=== PATIENT | female | born 1990 | race Caucasian/White ===

== ENCOUNTER 2023-12-17 16:42 | Outpatient (CLI) | payer BC, OTHER ==
[2023-12-17 17:23] LABS: Basophils % (A) 0 %; Eosinophils % (A) 0 %; HCT 39.4 % (34.0-46.0); HGB 12.9 gm/dL (11.4-16.0); Lymphocytes # (A) 1.9 k/uL (1.0-4.8); Lymphocytes % (A) 16 %; MCH 29.5 pg (25.0-35.0); MCHC 32.7 g/dL (31.0-37.0); MCV 90.3 fL (80.0-100.0); Mean Platelet Volume 10.1; Monocytes # (A) 0.9 k/uL (0-1.0); Monocytes % (A) 7 %; Neutrophils # (A) 8.7 k/uL (1.3-7.7); Neutrophils % (A) 73 %; Platelet Count 318 k/uL (150-450); RBC 4.36 m/uL (3.80-5.40); RDW 13.5 % (11.5-15.5); WBC 11.9 k/uL (3.8-10.6)
[2023-12-17 17:29] LABS: Appearance,Urine Cloudy (Clear); Bacteria,Urine Rare /hpf; Bilirubin,Urine Negative (Negative); Blood,Urine Negative (Negative); Color,Urine Colorless; Glucose,Urine (UA) Negative (Negative); Ketones,Urine Negative (Negative); Leukocyte Esterase,Urine Negative (Negative); Nitrite,Urine Negative (Negative); Protein,Urine Negative (Negative); Specific Gravity,Urine 1.007 (1.001-1.035); Squamous Epithelial Cell,Urine 10 /hpf (0-4); Urobilinogen,Urine <2.0 mg/dL (<2.0); WBC,Urine 1 /hpf (0-5)
[2023-12-17 18:06] VITALS: BP 143/94; PULSE 82; RESP 18; TEMP 98.6
== END 2023-12-17 18:04 | disposition home or self-care (01) ==
LOC: FBPOP 16:42
PROVIDERS: ATTEND Obstetrics & Gynecology
DX: O13.3 Gestational [pregnancy-induced] hypertension without significant proteinuria, third trimester (principal); Z3A.34 34 weeks gestation of pregnancy
CPT/HCPCS: 59025; 81001; 83615; 84450; 84460; 84550; 85025

== ENCOUNTER 2024-01-06 06:00 | Inpatient (IN) | payer BC ==
[2024-01-06] MEDS ORDERED: CARBOPROST TROMETHAMINE 250 MCG/ML 1 ML AMP IM PRN (07:08)
[2024-01-06] MEDS ORDERED: LIDOCAINE 0.5% (PF) 5 MG/ML (50 ML SDV) SQ PRN (07:08)
[2024-01-06] MEDS ORDERED: TRANEXAMIC 1,000 MG/100ML-NACL 1,000 MG in EMPTY BAG 1 BAG IV PRN (07:08)
[2024-01-06] MEDS ORDERED: TERBUTALINE 1 MG/ML VIAL SQ PRN (07:08)
[2024-01-06] MEDS ORDERED: METHYLERGONOVINE 0.2 MG/ML 1 ML AMP IM PRN (07:08)
[2024-01-06] MEDS ORDERED: OXYTOCIN 10 UNIT/ML 1 ML VIAL IM PRN (07:08)
[2024-01-06] MEDS ORDERED: miSOPROStoL 200 MCG TAB PO PRN (07:08)
[2024-01-06] MEDS: LACTATED RINGERS 1,000 ML IV SCH (07:15)
[2024-01-06] MEDS ORDERED: OXYTOCIN 30 UNITS/500 ML NS 30 UNIT in SALINE 1 500ML.BAG IV SCH (07:15)
[2024-01-06 07:23] LABS: Basophils % (A) 0 %; Eosinophils # (A) 0.1 k/uL (0-0.7); Eosinophils % (A) 1 %; HCT 36.8 % (34.0-46.0); HGB 12.4 gm/dL (11.4-16.0); Lymphocytes # (A) 2.5 k/uL (1.0-4.8); Lymphocytes % (A) 22 %; MCH 30.1 pg (25.0-35.0); MCHC 33.8 g/dL (31.0-37.0); Mean Platelet Volume 10.3; Monocytes # (A) 0.6 k/uL (0-1.0); Monocytes % (A) 6 %; Neutrophils # (A) 7.8 k/uL (1.3-7.7); Neutrophils % (A) 69 %; Platelet Count 279 k/uL (150-450); RBC 4.13 m/uL (3.80-5.40); RDW 13.7 % (11.5-15.5); WBC 11.4 k/uL (3.8-10.6)
[2024-01-06] MEDS: PENICILLIN G POTASSIUM 5,000,000 UNIT in DEXTROSE 5% IN WATER 100 ML IVPB STA (07:31)
[2024-01-06] MEDS: OXYTOCIN 30 UNITS/500 ML NS 30 UNIT in SALINE 1 500ML.BAG IV SCH (07:46)
[2024-01-06 08:29] LABS: ALT 17 U/L (4-34); AST 24 U/L (14-36); African American GFR (CKD) >90 (>60 ml/min/1.73 sqM); Blood Urea Nitrogen 10 mg/dL (7-17); LDH 175 U/L (120-246); Non-African American GFR(CKD) >90 (>60 ml/min/1.73 sqM)
--- NOTE | 2024-01-06 08:48 | P.HPOB ---
History of Present Illness H&P Date: 01/06/24 Chief Complaint: 37+ weeks, gestational hypertension The patient is a 33-year-old 1 para 0 admitted at 37+ weeks as established by last menstrual period and confirmed by 11-week ultrasound. She is admitted for induction of labor secondary to increasingly labile blood pressures with no evidence of laboratory abnormalities to indicate preeclampsia with severe features. She denies any secondary symptoms to include headache, scotomata, or significantly increasing edema and has had no protein in her urine. On labor delivery, all signs are reassuring with a category 1 heart rate tracing. She does fall into the category of advanced maternal age and underwent maternal trisomy screening which was negative. She was started on labetalol in the middle portion of the third trimester and over the last 2 weeks has had increasingly labile and higher blood pressures requiring increasing doses of labetalol. She is currently on 200 mg twice daily with continued labile blood pressures. Group B strep status is positive. Obstetrical history: 1 para 0 with current statistics listed in history of present illness. EDC of 01/25/2024 was established by last menstrual period confirmed by 11-week ultrasound. Laboratory workup demonstrates a blood type of A+ with a negative antibody screen. Rubella status is immune. The remainder of the laboratory workup was within normal limits. Early Glucola was elevated but followed by a normal 3-hour glucose tolerance test. Second trimester Glucola was normal. Group B strep status is positive. Gynecologic history: Unremarkable with no history of any infections to include STDs. Review of Systems Systems is confined to history of present illness. Past Medical History Past Medical History: No Reported History History of Any Multi-Drug Resistant Organisms: None Reported Additional Past Surgical History / Comment(s): ACL repair. Past Anesthesia/Blood Transfusion Reactions: No Reported Reaction Past Psychological History: No Psychological Hx Reported Smoking Status: Never smoker Past Alcohol Use History: None Reported Past Drug Use History: None Reported - Past Family History Mother Family Medical History: No Reported History Medications and Allergies Home Medications Medication Instructions Recorded Confirmed Type Labetalol [Trandate] 100 mg PO BID 01/06/24 01/06/24 History Vit No.179/Iron/Folic 1 each PO 01/06/24 History [ Tablet] Allergies Allergy/AdvReac Type Severity Reaction Status Date / Time No Known Allergies Allergy Verified 01/06/24 07:05 Exam Vital Signs Temp Pulse Resp BP Pulse Ox 01/06/24 06:50 99.3 F 75 16 147/91 97 Intake and Output 01/05/24 01/06/24 01/06/24 22:59 06:59 14:59 Other: Weight 119.748 kg 119.748 kg In general, this is a well-developed, mild to moderately obese white female in no acute distress. Her heart has a regular rhythm and rate without murmur. Her lungs are clear to auscultation bilaterally in all agy. Her abdomen is gravid, nondistended, has normal active bowel sounds, soft, nontender, and without any palpable masses aside from the uterine fundus. Her extremities are without any cyanosis, clubbing, or significant edema and are nontender to palpation bilaterally. Digital cervical examination demonstrates her cervix be 2 cm dilated, 50% effaced, with a vertex and presentation at -2 station. Artificial rupture of membranes is carried out demonstrating clear fluid though there may be a light meconium staining. Results Result Diagrams: 01/06/24 07:03 Abnormal Lab Results - Last 24 Hours (Table) 01/06/24 Range/Units 07:03 WBC 11.4 H (3.8-10.6) k/uL Neutrophils # 7.8 H (1.3-7.7) k/uL Assessment and Plan (1) Term Current Visit: Yes Status: Acute Code(s): Z34.90 - ENCNTR FOR SUPRVSN OF NORMAL , UNSP, UNSP TRIMESTER SNOMED Code(s): 01275195 (2) Group B streptococcal infection in Current Visit: Yes Status: Acute Code(s): O98.819 - OTH MATERNAL INFEC/NORTH TC DISEASES COMP PREG, UNSP TRI; B95.1 - STREPTOCOCCUS, GROUP B, CAUSING DISEASES CLASSD ELSWHR SNOMED Code(s): 867685782 (3) Gestational hypertension Current Visit: Yes Status: Acute Code(s): O13.9 - GESTATIONAL HTN W/O SIGNIFICANT PROTEINURIA, UNSP TRIMESTER SNOMED Code(s): 23274666 Plan: Patient is admitted for induction of labor. Pitocin augmentation has been started and she has undergone artificial rupture of membranes. She will have close maternal and surveillance and expectant management will be pr acticed. Blood pressures thus far have been slightly elevated but have not required intervention. Patient is a good candidate for either IV, epidural, or nitrous analgesia, whichever she may choose.
[2024-01-06 08:51] LABS: Uric Acid 5.3 mg/dL (3.7-7.4)
[2024-01-06] MEDS: LABETALOL 200 MG TAB PO SCH (09:15)
[2024-01-06] MEDS: PENICILLIN G POTASSIUM 2,500,000 UNIT in DEXTROSE 5% IN WATER 100 ML IVPB SCH (11:04)
[2024-01-06] MEDS: NALBUPHINE 10 MG/ML (10 ML MDV) IV PRN (15:42)
[2024-01-06] MEDS ORDERED: SODIUM CHLORIDE 0.9% 250 ML BAG ONE (18:01)
[2024-01-06] MEDS ORDERED: fentaNYL (PF) 50 MCG/ML 5 ML AMP ONE (18:01)
[2024-01-06] MEDS ORDERED: ROPIVACAINE 5 MG/ML 30 ML VIAL ONE (18:01)
[2024-01-06] MEDS ORDERED: hydrALAZINE HCL 20 MG/ML 1 ML VIAL IVP PRN ×3 (19:00)
[2024-01-06] MEDS ORDERED: LABETALOL 5 MG/ML VIAL MDV IVP PRN ×4 (19:00)
[2024-01-06] MEDS: LABETALOL 5 MG/ML VIAL MDV IVP PRN (19:08)
[2024-01-07] MEDS: CITRIC ACID-SODIUM CITRATE 15 ML CUP PO ONE (05:31)
[2024-01-07] MEDS ORDERED: PHENYLEPHRINE-0.9% NACL SYG 1,000 MCG/10 ML SYRINGE ONE (06:04)
[2024-01-07] MEDS ORDERED: OXYTOCIN 30 UNITS/500 ML NS BAG IV ONE (06:04)
[2024-01-07] MEDS ORDERED: KETOROLAC 15 MG/ML 1 ML VIAL ONE (06:04)
[2024-01-07] MEDS ORDERED: diphenhydrAMINE 25 MG CAP PO PRN (06:58)
[2024-01-07] MEDS ORDERED: NALOXONE 0.4 MG/ML 1 ML VIAL IV PRN (06:58)
[2024-01-07] MEDS ORDERED: ONDANSETRON 4 MG/2 ML VIAL IVP PRN (06:58)
[2024-01-07] MEDS ORDERED: ZOLPIDEM 5 MG TAB PO PRN (06:58)
[2024-01-07] MEDS ORDERED: diphenhydrAMINE 50 MG/ML 1 ML VIAL IVP PRN ×2 (06:58)
[2024-01-07] MEDS ORDERED: SIMETHICONE 80 MG CHEWABLE PO PRN (06:58)
[2024-01-07] MEDS ORDERED: METOCLOPRAMIDE 5 MG/ML 2 ML VIAL IVP PRN (06:58)
[2024-01-07] MEDS ORDERED: KETOROLAC 15 MG/ML 1 ML VIAL IVP PRN (06:58)
[2024-01-07] MEDS ORDERED: LANOLIN CREAM 1 GM TUBE TOPICAL PRN (06:58)
[2024-01-07] MEDS ORDERED: diphenhydrAMINE 50 MG CAP PO PRN (06:58)
[2024-01-07] MEDS ORDERED: OXYTOCIN 30 UNITS/500 ML NS 30 UNIT in SALINE 1 500ML.BAG IV SCH (07:00)
--- NOTE | 2024-01-07 07:06 | P.OP ---
Date of Procedure: 01/07/24 Preoperative Diagnosis: #1. 39+ weeks, induction #2. Gestational hypertension without evidence of preeclampsia #3. Arrest of dilation and descent Postoperative Diagnosis: Same plus #4. occiput posterior position Procedure(s) Performed: #1. Primary low-transverse section Anesthesia: epidural Surgeon: Anand Neil Asphalt Coater #1: Suzie Escobar Estimated Blood Loss (ml): 710 IV fluids (ml): 500 Urine output (ml): 50 Pathology: other (Placenta) Condition: stable Disposition: floor Operative Findings: Preoperatively, the patient had been undergoing induction of labor for just under 24 hours. She made progress into the active phase of labor to approximately 5 cm, 90% effacement, with a vertex and presentation at -2-3 station. She continued to have a more than adequate contraction pattern with Pitocin augmentation for approximately 7 to 8 hours with no further dilation or effacement or descent of the head. A discussion was undertaken with the patient regarding the findings and the lack of change despite adequate contractions and she not only consented but requested to proceed to primary low- transverse section. She was taken to the operating room where she was delivered of a viable 6 pound 7 ounce baby girl with Apgars of 9 at 1 minute and 9 at 5 minutes delivered in the left occiput posterior position. The placenta was delivered manually, intact, and grossly normal with a grossly normal three- vessel cord. The uterus, tubes, and ovaries were entirely normal to inspection. Description of Procedure: The patient was prepped and draped in usual fashion after epidural anesthesia was bolused by the anesthesiologist. A Pfannenstiel incision was made and extended into the abdominal cavity without difficulty. The bladder peritoneum was deemed significantly distal to the intended site of incision and was left intact. A 2 cm incision was made in the transverse plane of the lower uterine segment after the uterus at which time clear fluid was again encountered. The incision was extended in both directions using the bandage scissors. The head was delivered up and through the incision and found to be in the left occiput posterior position. The nose and mouth were thoroughly suctioned and the remainder of the infant delivered onto the field where the cord was doubly clamped, cut, and the passed for resuscitative measures with weight and Apgars as noted above. The placenta was delivered manually and intact as noted above. The uterus was exteriorized and the anterior cavity uterus swept of any remaining placental or membranous fragments. The margins of the uterine incision were grasped with Bell clamps and the incision closed in 2 layers. The first layer was a running locking stitch of 0 chromic catgut followed by a running imbricating stitch of 0 chromic catgut, each from margin to margin. The posterior cul-de-sac was suctioned with a guard and the uterine and ovarian findings were entirely normal. The uterus was replaced within the abdominal cavity and the gutters swept of any remaining blood, fluid, or clot. Reexamination of the uterine incision demonstrated some bleeding in the central portion which was made hemostatic with a single pgniaf-nf-asnwn stitch of 0 chromic catgut. Cautery was used to make hemostatic any other small points of bleeding. Once hemostasis was achieved, the parietal peritoneum was loosely reapproximated and the layer of muscles examined and found to be hemostatic. The fascia was closed with a single running stitch of 0 Vicryl proceeding from margin to margin. The subcutaneous tissues were irrigated, made hemostatic with the Bovie, and reapproximated with a running stitch of 3-0 plain catgut. The skin was reapproximated with a running subcuticular stitch of 4-0 Vicryl followed by half-inch Steri-Strips placed with Mastisol. Quantitative blood loss for the case was 710 mL. There were no complications. All sponge, instrument, and needle counts were correct. The patient tolerated the procedure well and proceeded to the recovery room in stable condition. Both mother and are resting comfortably in recovery.
[2024-01-07] MEDS: SENNOSIDES-DOCUSATE SODIUM 1 EACH TAB PO SCH (08:49)
[2024-01-07] MEDS: ACETAMINOPHEN TAB 500 MG TAB PO SCH (10:43)
[2024-01-07] MEDS: IBUPROFEN 600 MG TAB PO SCH (13:04)
[2024-01-07] MEDS: LACTATED RINGERS 1,000 ML IV SCH (18:06)
--- NOTE | 2024-01-08 06:13 | P.PN ---
Progress Note - Text Progress Note Date: 01/08/24 Postoperative day 1 status post section under spinal anesthesia and in trathecal Duramorph for postoperative analgesia.The patient is doing well, there is mild generalized skin itching. There are no other anesthesia related complications. The patient denies any paresthesia or weakness in the lower extremities. Patient denies any headache. Further management as per the patient primary team.
[2024-01-08 08:23] LABS: Basophils % (A) 0 %; Eosinophils # (A) 0.1 k/uL (0-0.7); Eosinophils % (A) 1 %; HCT 29.4 % (34.0-46.0); Lymphocytes # (A) 2.1 k/uL (1.0-4.8); Lymphocytes % (A) 19 %; MCH 29.5 pg (25.0-35.0); MCHC 32.2 g/dL (31.0-37.0); MCV 91.4 fL (80.0-100.0); Mean Platelet Volume 10.6; Monocytes # (A) 0.8 k/uL (0-1.0); Monocytes % (A) 7 %; Neutrophils # (A) 7.7 k/uL (1.3-7.7); Neutrophils % (A) 71 %; Platelet Count 221 k/uL (150-450); RBC 3.21 m/uL (3.80-5.40); RDW 13.7 % (11.5-15.5); WBC 10.9 k/uL (3.8-10.6)
[2024-01-08 08:24] LABS: HGB 9.5 gm/dL (11.4-16.0)
--- NOTE | 2024-01-08 09:12 | P.PNOBGPC ---
Subjective - Subjective Patient reports: Reports appetite normal, Reports voiding normally, Reports pain well controlled, Reports ambulating normally : doing well, nursing well Objective - Vital Signs Latest vital signs: Vital Signs Temp Pulse Resp BP Pulse Ox 01/08/24 08:00 97.9 F 74 18 135/87 99 01/08/24 00:00 97.9 F 88 17 130/70 97 01/07/24 21:50 140/81 01/07/24 20:00 97.6 F 75 17 144/89 98 01/07/24 16:00 98.1 F 89 18 140/92 98 01/07/24 12:00 98.2 F 90 18 162/94 Intake and Output 01/07/24 01/08/24 01/08/24 22:59 06:59 14:59 Output Total 800 500 Balance -800 -500 Output: Urine 800 500 Uretheral ([place]) 400 Other: Voiding Method Toilet Indwelling Catheter # Voids 1 2 - Exam Extremities: Present: normal Abdomen: Present: normal appearance, soft. Absent: distention, tenderness Incision: Present: normal, dry, intact Uterus: Present: normal, firm (The uterine fundus is tonic and appropriately tender below the umbilicus.) - Labs Labs: Abnormal Lab Results - Last 24 Hours (Table) 01/08/24 Range/Units 07:09 WBC 10.9 H (3.8-10.6) k/uL RBC 3.21 L (3.80-5.40) m/uL Hgb 9.5 L D (11.4-16.0) gm/dL Hct 29.4 L (34.0-46.0) % Assessment and Plan (1) Term Current Visit: Yes Status: Acute Code(s): Z34.90 - ENCNTR FOR SUPRVSN OF NORMAL , UNSP, UNSP TRIMESTER SNOMED Code(s): 67157736 (2) Group B streptococcal infection in Current Visit: Yes Status: Acute Code(s): O98.819 - OTH MATERNAL INFEC/PARASTC DISEASES COMP PREG, UNSP TRI; B95.1 - STREPTOCOCCUS, GROUP B, CAUSING DISEASES CLASSD ELSWHR SNOMED Code(s): 706277557 (3) Gestational hypertension Current Visit: Yes Status: Acute Code(s): O13.9 - GESTATIONAL HTN W/O SIGNIFICANT PROTEINURIA, UNSP TRIMESTER SNOMED Code(s): 35965556 (4) S/P section Current Visit: Yes Status: Acute Code(s): Z98.891 - HISTORY OF UTERINE SCAR FROM PREVIOUS SURGERY SNOMED Code(s): 624716205 Plan: Blood pressure appears to be stable on labetalol 200 mg twice daily. Continue routine and postoperative care. I would anticipate discharge home tomorrow pending no complications. I have encouraged the patient ambulate in the hallways routinely.
--- NOTE | 2024-01-09 08:48 | P.DS ---
Providers Date of admission: 01/06/24 06:45 Expected date of discharge: 01/09/24 Attending physician: Anand Neil Primary care physician: Stated None Hospital Course: Ms. Mary is a 33 year old now POD#2 s/p primary section for maternal request during medical induction of labor for gestational hypertension. Her postoperative course has been essentially uncomplicated. Blood pressures have been moderately well controlled with Labetalol 200 BID. She did have one severe range blood pressure this morning just before her medication was due. Will continue to monitor blood pressures this morning and titrate medication as needed. The patient is doing well this morning and had no acute events overnight. She has no complaints this morning. She reports minimal lochia, passing flatus, voiding without difficulty, ambulating, and eating/drinking without nausea or vomiting. She denies headache, visual disturbances, and RUQ pain. doing well at bedside. She denies chest pain, shortness of breathing, fevers, or chills overnight. She denies pain or swelling in the legs. Postoperative restrictions are reviewed with the patient including pelvic rest for 6 weeks, no lifting heavier than 15 pounds for 6 weeks. The patient is encouraged to call the office if she experiences any heavy bleeding, foul- smelling discharge, breast complaints, or any if she has any other concerns. She will follow up in the office with Dr. Neil in 1 week for blood pressure check. She will go home with Motrin, Tylenol, and a 3-day supply of oxycodone for breakthrough pain. She will also go home with Labetalol 200mg BID. All questions are answered. Assessment: 33 year old now POD#2 s/p primary Patient Condition at Discharge: Good Plan - Discharge Summary New Discharge Prescriptions: New Ibuprofen [Motrin] 600 mg PO Q6HR PRN #30 tab PRN Reason: Mild Pain (Scale 1 To 3) oxyCODONE HCL [Roxicodone] 5 mg PO Q6HR PRN 3 Days #12 tab PRN Reason: Breakthrough Pain Acetaminophen Tab [Tylenol] 650 mg PO Q6H PRN #30 tab PRN Reason: Mild Pain (Scale 1 To 3) Labetalol HCl 200 mg PO BID #60 tab No Action Labetalol [Trandate] 100 mg PO BID Vit No.179/Iron/Folic [ Tablet] 1 each PO Discharge Medication List Labetalol [Trandate] 100 mg PO BID 01/06/24 [History] Vit No.179/Iron/Folic [ Tablet] 1 each PO 01/06/24 [History] Acetaminophen Tab [Tylenol] 650 mg PO Q6H PRN #30 tab 01/09/24 [Rx] Ibuprofen [Motrin] 600 mg PO Q6HR PRN #30 tab 01/09/24 [Rx] Labetalol HCl 200 mg PO BID #60 tab 01/09/24 [Rx] oxyCODONE HCL [Roxicodone] 5 mg PO Q6HR PRN 3 Days #12 tab 01/09/24 [Rx] Follow up Appointment(s)/Referral(s): Anand Neil MD [STAFF PHYSICIAN] - 02/16/24 1:15 pm (Post C/S Appointment 01-20-2024 at 2:00pm, also needs 1 week BP check) Activity/Diet/Wound Care/Special Instructions: Instructions 1. Do not begin any exercise program for 3 weeks. 2. Do not resume sexual relations for 6 weeks or longer if uncomfortable. 3. You may take tub baths or showers at any time. 4. You may use tampons if desired after 6 weeks. 5. Keep any areas repaired with stitches clean and dry. 6. If you are not nursing, wear a good fitting, supportive bra during the day and limit fluid intake for at least 1 week to prevent breast engorgement. 7. Call the office, , within the next week to make appointment for your 6 week checkup if it has not already been made. 8. Report any of the following occurrences to the doctor promptly: a. Heavy, excessive bleeding b. Chills, fever c. Burning or frequency of urination d. Pain or redness and breasts if nursing e. Increasing pain or swelling of vulva (stitches). In addition to the above instructions, the following additional should be followed: 1. No heavy lifting or straining (exercising) until after 6 week checkup. 2. Keep abdominal incision clean and dry: You may wear a dressing if more comfortable. 3. Make office appointment for 2 weeks after delivery date. Discharge Disposition: HOME SELF-CARE
[2024-01-09 09:11] VITALS: TEMP 97.5
[2024-01-09 11:29] VITALS: RESP 14
[2024-01-09] MEDS: LABETALOL 100 MG TAB PO ONE (11:53)
[2024-01-09 13:41] VITALS: BP 159/96; PULSE 73
== END 2024-01-09 12:50 | disposition home or self-care (01) | DRG 787 ==
LOC: 4FBP 06:45
PROVIDERS: ADMIT Obstetrics & Gynecology; ATTEND Obstetrics & Gynecology
PROC: 10D00Z1 Extraction of Products of Conception, Low, Open Approach (ICD-10-PCS; principal; 2024-01-07 06:20)
DX: O13.4 Gestational [pregnancy-induced] hypertension without significant proteinuria, complicating childbirth (principal); O98.82 Other maternal infectious and parasitic diseases complicating childbirth; B95.1 Streptococcus, group B, as the cause of diseases classified elsewhere; O12.14 Gestational proteinuria, complicating childbirth; O62.1 Secondary uterine inertia; O99.824 Streptococcus B carrier state complicating childbirth; Z37.0 Single live birth
CPT/HCPCS: 82565; 83615; 84450; 84460; 84520; 84550; 85025; 86850; 86900; 86901; 88307

== ENCOUNTER 2024-01-13 00:01 | Inpatient (IN) | payer BC ==
--- NOTE | 2024-01-13 00:38 | ED ---
Chest Pain HPI - General Chief Complaint: Chest Pain Stated Complaint: chest pain high BP had a c section on friday Time Seen by Provider: 01/13/24 00:36 Source: patient Mode of arrival: wheelchair Limitations: no limitations - History of Present Illness Initial Comments: This patient is a 33-year-old woman who presents to evaluation of chest tightne ss and hypertension. The patient had on January [address] Juan Aguayo she had been admitted in the hospital for induction. Related to gestational hypertension without evidence of preeclampsia. The patient then reportedly having failure to have further dilation had . The patient did go home with labetalol 400 mg/day. Today she noticed that she was having little bit of chest tightness and some mild headache and checked her blood pressure. Blood pressure at home was found to be in the 150s. She had prior to this been running in the 140s over 90s. Her blood pressure medication was increased to labetalol 600 mg/day. When the symptoms did not resolve she checked her blood pressure again and it had increased to a systolic reading in the 170s and she was recommended to come to emergency department. Patient denies any right upper quadrant or any abdominal pain. In relation to her section she states that there is just a minimal amount of lower abdominal tenderness and that the incision is clean and dry. Not having fever or chills. No change in urination or bowel movements. MD Complaint: chest pain -: hour(s) Onset: during rest Pain Location: substernal Pain Radiation: none Severity: mild Quality: tightness Consistency: constant Improves With: nothing Worsens With: nothing Anginal Symptoms: nausea Treatments Prior to Arrival: other (Labetalol) - Related Data Home Medications Medication Instructions Recorded Confirmed Labetalol [Trandate] 100 mg PO BID 01/06/24 01/06/24 Vit No.179/Iron/Folic 1 each PO 01/06/24 [ Tablet] Previous Rx's Medication Instructions Recorded Acetaminophen Tab [Tylenol] 650 mg PO Q6H PRN #30 tab 01/09/24 Ibuprofen [Motrin] 600 mg PO Q6HR PRN #30 tab 01/09/24 Labetalol HCl 200 mg PO BID #60 tab 01/09/24 oxyCODONE HCL [Roxicodone] 5 mg PO Q6HR PRN 3 Days #12 tab 01/09/24 Labetalol HCl 300 mg PO BID #60 tab 01/14/24 NIFEdipine XL [Procardia Xl] 30 mg PO DAILY #30 tab 01/14/24 Allergies Allergy/AdvReac Type Severity Reaction Status Date / Time No Known Allergies Allergy Verified 01/06/24 07:05 Review of Systems ROS Statement: Those systems with pertinent positive or pertinent negative responses have been documented in the HPI. ROS Other: All systems not noted in ROS Statement are negative. Constitutional: Denies: fever, chills, weakness Eyes: Denies: eye pain, vision change Respiratory: Denies: cough, dyspnea, wheezes Cardiovascular: Reports: as per HPI, chest pain. Denies: palpitations, dyspnea on exertion, orthopnea, edema, syncope Gastrointestinal: Denies: abdominal pain, nausea, vomiting, diarrhea Genitourinary: Denies: dysuria, hematuria Musculoskeletal: Denies: back pain Skin: Denies: rash Neurological: Reports: headache. Denies: weakness, numbness, paresthesias Psychiatric: Reports: anxiety EKG Findings - EKG Results: EKG: interpreted by SHAMEKA STACK, sinus rhythm (Rate 70 bpm), normal axis, normal QRS, normal ST/T, no acute changes Past Medical History Past Medical History: No Reported History History of Any Multi-Drug Resistant Organisms: None Reported Additional Past Surgical History / Comment(s): ACL repair. Past Anesthesia/Blood Transfusion Reactions: No Reported Reaction Past Psychological History: No Psychological Hx Reported Smoking Status: Never smoker Past Alcohol Use History: None Reported Past Drug Use History: None Reported - Past Family History Mother Family Medical History: No Reported History General Exam Limitations: no limitations General appearance: alert, in no apparent distress Head exam: Present: atraumatic, normocephalic Eye exam: Present: normal appearance. Absent: scleral icterus, conjunctival injection ENT exam: Present: normal oropharynx Neck exam: Present: normal inspection Respiratory exam: Present: normal lung sounds bilaterally. Absent: respiratory distress, wheezes, rales, rhonchi, stridor, accessory muscle use Cardiovascular Exam: Present: regular rate, normal rhythm, normal heart sounds. Absent: systolic murmur, diastolic murmur, rubs, gallop GI/Abdominal exam: Present: soft. Absent: distended, tenderness, guarding, rebound, rigid, mass Extremities exam: Present: normal inspection, normal capillary refill. Absent: pedal edema, calf tenderness Back exam: Present: normal inspection. Absent: CVA tenderness (R), CVA tenderness (L) Neurological exam: Present: alert Skin exam: Present: warm, dry, intact, normal color. Absent: rash Course Vital Signs 01/13/24 01/13/24 01/13/24 00:13 00:50 01:10 Temperature 98 F Pulse Rate 87 69 71 Respiratory 20 12 24 Rate Blood Pressure 196/125 182/108 155/103 O2 Sat by Pulse 97 97 97 Oximetry 01/13/24 01/13/24 01:40 02:10 Temperature Pulse Rate 78 73 Respiratory 23 24 Rate Blood Pressure 153/84 156/93 O2 Sat by Pulse 95 95 Oximetry Chest Pain MDM - MDM Patient's blood pressure elevated at 196/125. She is given dose of labetalol 20 mg IV and started on magnesium IV, she had 1 g IV piggyback and I went and reevaluated. The patient's blood pressure has started to improve with treatment. Blood pressure on the monitor currently reading 152/84 she states all of her symptoms have resolved now. Case discussed with Dr. Alvarado who will admit patient to mother-baby unit to receive rest of magnesium and further monitoring evaluation. The patient had chest x-ray which I interpreted as negative for acute infiltrate, pneumothorax, congestive heart failure Was pt. sent in by a medical professional or institution (RAMON Dobbs, BRIDGE MAINTAINER, urgent care, hospital, or detention...) When possible be specific @ -[No] Did you speak to anyone other than the patient for history (EMS, parent, family, police, friend...)? What history was obtained from this source @ -[No] Did you review nursing and triage notes (agree or disagree)? Why? @ -[I reviewed and agree with nursing and triage notes] Were old charts reviewed (outside hosp., previous admission, EMS record, old EKG, old radiological studies, urgent care reports/EKG's, detention records)? Report findings @ -[Yes, Old charts were reviewed] Differential Diagnosis (chest pain, altered mental status, abdominal pain women, abdominal pain men, vaginal bleeding, weakness, fever, dyspnea, syncope, headache, dizziness, GI bleed, back pain, seizure, CVA, palpatations, mental health, musculoskeletal)? @ -[Differential Chest Pain: Stable Angina, Unstable Angina, STEMI, NSTEMI Aortic Dissection, Pneumothorax, Musculoskeletal, Esophageal Spasm GERD, Cholecystitis, Pancreatitis, preeclampsia this is not meant to be an all-inclusive list. EKG interpreted by me (3pts min.). @ -[I interpreted as above] X-rays interpreted by me (1pt min.). @ -[I interpreted as above CT interpreted by me (1pt min.). @ -[None done] U/S interpreted by me (1pt. min.). @ -[None done] What testing was considered but not performed or refused? (CT, X-rays, U/S, labs)? Why? @ -[None] What meds were considered but not given or refused? Why? @ -[None] Did you discuss the management of the patient with other professionals (professionals i.e. , PA, BRIDGE MAINTAINER, lab, RT, psych nurse, social work professor, manager department, teacher, immigration officer, correctional counselor/case manager)? Give summary @ -[As above Case discussed with the miniature set designer. Was smoking cessation discussed for >3mins.? @ -[No] Was critical care preformed (if so, how long)? @ -[This, 30 minutes Were there social determinants of health that impacted care today? How? (Homelessness, low income, unemployed, alcoholism, drug addiction, transportation, low edu. Level, literacy, decrease access to med. care, senior living, rehab)? @ -[No] Was there de-escalation of care discussed even if they declined (Discuss DNR or withdrawal of care, Hospice)? DNR status @ -[No] What co-morbidities impacted this encounter? (DM, HTN, Smoking, COPD, CAD, Cancer, CVA, ARF, Chemo, Hep., AIDS, mental health diagnosis, sleep apnea, morbid obesity)? @ -[Hypertension. status. Was patient admitted / discharged? Hospital course, mention meds given and route, prescriptions, significant lab abnormalities, going to OR and other pertinent info. @ -[See the course above Undiagnosed new problem with uncertain prognosis? @ -[No] Drug Therapy requiring intensive monitoring for toxicity (Heparin, Nitro, In sulin, Cardizem)? @ -[IV magnesium Were any procedures done? @ -[No] Diagnosis/symptom? @ -[Acute hypertension preeclampsia Acute, or Chronic, or Acute on Chronic? @ -[Acute Uncomplicated (without systemic symptoms) or Complicated (systemic symptoms)? @ -[default] Side effects of treatment? @ -[No] Exacerbation, Progression, or Severe Exacerbation? @ -[No] Poses a threat to life or bodily function? How? (Chest pain, [place], [place], pneumonia, PE, COPD, DKA, ARF, appy, cholecystitis, CVA, Diverticulitis, Homicidal, Suicidal, threat to staff... and all critical care pts) @ -[Yes there is significant risk of morbidity and mortality associated with preeclampsia Disposition Clinical Impression: Gestational hypertension Narrative: preeclampsia versus gestational hypertension exacerbation Disposition: ADMITTED IP TO THIS [facility] Condition: Good Is patient prescribed a controlled substance at d/c from ED?: No
[2024-01-13] MEDS: LABETALOL 5 MG/ML VIAL MDV IVP STA (00:43)
[2024-01-13] MEDS: MAGNESIUM SULFATE-D5W PMX 1 GM in DEXTROSE/WATER 1 100ML.BAG IVPB SCH (00:47)
[2024-01-13 01:17] LABS: Basophils % (A) 0 %; Eosinophils # (A) 0.1 k/uL (0-0.7); Eosinophils % (A) 1 %; HCT 32.5 % (34.0-46.0); HGB 10.5 gm/dL (11.4-16.0); Lymphocytes # (A) 2.1 k/uL (1.0-4.8); Lymphocytes % (A) 19 %; MCH 29.4 pg (25.0-35.0); MCHC 32.3 g/dL (31.0-37.0); MCV 91.1 fL (80.0-100.0); Mean Platelet Volume 8.4; Monocytes # (A) 0.6 k/uL (0-1.0); Monocytes % (A) 6 %; Neutrophils # (A) 8.2 k/uL (1.3-7.7); Neutrophils % (A) 73 %; Platelet Count 438 k/uL (150-450); RBC 3.56 m/uL (3.80-5.40); RDW 13.6 % (11.5-15.5); WBC 11.2 k/uL (3.8-10.6)
[2024-01-13 01:30] LABS: ALT 59 U/L (4-34); AST 32 U/L (14-36); African American GFR (CKD) >90 (>60 ml/min/1.73 sqM); Albumin 3.1 g/dL (3.5-5.0); Alkaline Phosphatase 125 U/L (38-126); Anion Gap 6 mmol/L; Blood Urea Nitrogen 11 mg/dL (7-17); Calcium 8.7 mg/dL (8.4-10.2); Carbon Dioxide 22 mmol/L (22-30); Chloride 111 mmol/L (98-107); Glucose 85 mg/dL (74-99); LDH 251 U/L (120-246); Magnesium 1.9 mg/dL (1.6-2.3); Non-African American GFR(CKD) >90 (>60 ml/min/1.73 sqM); Potassium 4.3 mmol/L (3.5-5.1); Sodium 139 mmol/L (137-145); Total Bilirubin 0.3 mg/dL (0.2-1.3); Total Protein 5.9 g/dL (6.3-8.2); Uric Acid 5.9 mg/dL (3.7-7.4)
[2024-01-13] MEDS ORDERED: NALOXONE 0.4 MG/ML 1 ML VIAL IV PRN (01:55)
--- NOTE | 2024-01-13 02:16 | XR ---
EXAM: XR Chest, 2 Views CLINICAL HISTORY: ITS.REASON XR Reason: SOB TECHNIQUE: Frontal and lateral views of the chest. COMPARISON: No relevant prior studies available. FINDINGS: Lungs: No consolidation or mass. Pleural space: No effusion. Heart: Upper limits of normal heart sounds. Bones/joints: No acute findings. IMPRESSION: No acute cardiopulmonary process.
[2024-01-13] MEDS: SODIUM CHLORIDE 0.9% 1,000 ML IV SCH (02:19)
[2024-01-13 02:38] LABS: Appearance,Urine Clear (Clear); Bilirubin,Urine Negative (Negative); Blood,Urine Small (Negative); Color,Urine Colorless; Glucose,Urine (UA) Negative (Negative); Ketones,Urine Negative (Negative); Leukocyte Esterase,Urine Moderate (Negative); Nitrite,Urine Negative (Negative); Protein,Urine Negative (Negative); RBC,Urine <1 /hpf (0-5); Specific Gravity,Urine 1.005 (1.001-1.035); Squamous Epithelial Cell,Urine <1 /hpf (0-4); Urobilinogen,Urine <2.0 mg/dL (<2.0); WBC,Urine 2 /hpf (0-5)
[2024-01-13] MEDS ORDERED: hydrALAZINE HCL 20 MG/ML 1 ML VIAL IVP PRN (03:27)
[2024-01-13] MEDS ORDERED: CALCIUM GLUCONATE 1 GM/10 ML VIAL IV PRN (03:27)
[2024-01-13] MEDS ORDERED: LABETALOL 5 MG/ML VIAL MDV IVP PRN ×2 (03:27)
[2024-01-13] MEDS: LABETALOL 5 MG/ML VIAL MDV IVP PRN (03:48)
[2024-01-13] MEDS: MAGNESIUM SULFATE-WATER PMX 4 GM in WATER FOR INJECTION 1 100ML.BAG IVPB ONE (03:59)
[2024-01-13] MEDS: MAGNESIUM SULFATE-WATER PMX 20 GM in WATER FOR INJECTION 1 500ML.BAG IV SCH (04:26)
[2024-01-13] MEDS: IBUPROFEN 600 MG TAB PO PRN (04:48)
[2024-01-13] MEDS: LABETALOL 100 MG TAB PO SCH (09:03)
--- NOTE | 2024-01-13 09:04 | P.HPOB ---
History of Present Illness H&P Date: 01/13/24 Chief Complaint: headache, elevated blood pressure, chest pain Ms. Mary is a 34 year old POD#6 s/p primary section for gestational hypertension and latent phase arrest of labor. She was induced for gestational hypertension and did have elevated pressures in her immediate postoperative course. She was discharged home on Labetalol 300mg twice daily, however, there was a misunderstanding and the patient was only taking 200mg twice daily. She had been following her home blood pressures and noted 170s/90s- 100s yesterday evening accompanied by headache and some chest discomfort. She was evaluated in the ER and given a dose of IV Labetalol 20mg which did bring her pressures down. pre-eclampsia was diagnosed and the patient was admitted for IV Mag Sulfate for 24 hours. Her home Labetalol 300mg BID was also reordered. The patient is . She is healing well from the . She does complain of a mild headache this morning. She denies visual changes and RUQ pain. Past Medical History Past Medical History: No Reported History History of Any Multi-Drug Resistant Organisms: None Reported Past Surgical History: Section Additional Past Surgical History / Comment(s): ACL repair Past Anesthesia/Blood Transfusion Reactions: No Reported Reaction Past Psychological History: No Psychological Hx Reported Smoking Status: Never smoker Past Alcohol Use History: None Reported Past Drug Use History: None Reported - Past Family History Mother Family Medical History: No Reported History Medications and Allergies Home Medications Medication Instructions Recorded Confirmed Type Labetalol [Trandate] 100 mg PO BID 01/06/24 01/06/24 History Vit No.179/Iron/Folic 1 each PO 01/06/24 History [ Tablet] Acetaminophen Tab [Tylenol] 650 mg PO Q6H PRN #30 tab 01/09/24 Rx Ibuprofen [Motrin] 600 mg PO Q6HR PRN #30 tab 01/09/24 Rx Labetalol HCl 200 mg PO BID #60 tab 01/09/24 Rx oxyCODONE HCL [Roxicodone] 5 mg PO Q6HR PRN 3 Days #12 tab 01/09/24 Rx Allergies Allergy/AdvReac Type Severity Reaction Status Date / Time No Known Allergies Allergy Verified 01/06/24 07:05 Exam Vital Signs Temp Pulse Pulse Resp BP BP Pulse Ox 01/13/24 08:15 80 16 150/84 95 01/13/24 07:15 97.7 F 76 16 141/86 95 01/13/24 06:35 74 16 142/54 95 01/13/24 05:45 74 16 157/83 94 L 01/13/24 04:59 74 16 155/84 95 01/13/24 04:45 74 16 152/79 97 01/13/24 04:30 74 16 147/77 97 01/13/24 04:15 79 16 155/72 96 01/13/24 04:00 65 16 162/78 96 01/13/24 03:36 98.0 F 79 16 162/78 96 01/13/24 03:07 75 16 179/91 01/13/24 02:10 73 24 156/93 95 01/13/24 01:40 78 23 153/84 95 01/13/24 01:10 71 24 155/103 97 01/13/24 00:50 69 12 182/108 97 01/13/24 00:13 98 F 87 20 196/125 97 Intake and Output 01/12/24 01/13/24 01/13/24 22:59 06:59 14:59 Other: Weight 117.934 kg Focused physical exam is performed. This is a healthy-appearing female in no apparent distress. Breathing is non-labored. Abdomen is soft and non-tender. Extremities non-tender and non-edematous. Results Result Diagrams: 01/13/24 00:20 01/13/24 00:20 Abnormal Lab Results - Last 24 Hours (Table) 01/13/24 01/13/24 01/13/24 Range/Units 00:20 00:20 02:06 WBC 11.2 H (3.8-10.6) k/uL RBC 3.56 L (3.80-5.40) m/uL Hgb 10.5 L (11.4-16.0) gm/dL Hct 32.5 L (34.0-46.0) % Neutrophils # 8.2 H (1.3-7.7) k/uL Chloride 111 H (98-107) mmol/L ALT 59 H (4-34) U/L Lactate Dehydrogenase 251 H (120-246) U/L Total Protein 5.9 L (6.3-8.2) g/dL Albumin 3.1 L (3.5-5.0) g/dL Urine Blood Small H (Negative) Ur Leukocyte Esterase Moderate H (Negative) Assessment and Plan Assessment: 34 year old POD#6 s/p primary section, now with pre- eclampsia on IV Mag Sulfate Plan: 1. PreE. 24 hours of IV Mag Sulfate for seizure ppx. Labetalol 300mg BID reordered. 2. Viable female infant. Doing well at bedside. Dispo: Will evaluate for discharge home tomorrow morning if blood pressures stable. Time with Patient: Less than 30
[2024-01-13] MEDS: NIFEdipine XL 30 MG TAB.ER.24 PO SCH (10:31)
[2024-01-13] MEDS: ACETAMINOPHEN TAB 325 MG TAB PO PRN (14:29)
[2024-01-13] MEDS: LACTATED RINGERS 1,000 ML IV SCH (16:14)
[2024-01-13 21:11] VITALS: RESP 16
--- NOTE | 2024-01-14 09:10 | P.DS ---
Providers Date of admission: 01/13/24 01:58 Expected date of discharge: 01/14/24 Attending physician: Yue Alvarado MD Primary care physician: Stated None Hospital Course: Ms. Mary is a 34 year old now POD#7 s/p primary section who was hospitalized on the evening of 01/11 for pre-eclampsia for 24 hours of IV Mag Sulfate and antihypertensive titration. Her blood pressures are now normotensive on Labetalol 300mg BID and Procardial XL 30mg qDay. She has a mild headache this morning that she believes is due to sleep deprivation. She denies visual changes and RUQ pain. She will follow up with Dr. Neil next week in the office for incision check. Her antihypertensives will be filled to the pharmacy here. Assessment: Ms. Mary is a 34 year old now POD#7 s/p primary section who was hospitalized on the evening of 01/11 for pre-eclampsia for 24 hours of IV Mag Sulfate and antihypertensive titration. Patient Condition at Discharge: Good Plan - Discharge Summary New Discharge Prescriptions: New Labetalol HCl 300 mg PO BID #60 tab NIFEdipine XL [Procardia Xl] 30 mg PO DAILY #30 tab No Action Labetalol [Trandate] 100 mg PO BID Ibuprofen [Motrin] 600 mg PO Q6HR PRN #30 tab PRN Reason: Mild Pain (Scale 1 To 3) oxyCODONE HCL [Roxicodone] 5 mg PO Q6HR PRN 3 Days #12 tab PRN Reason: Breakthrough Pain Acetaminophen Tab [Tylenol] 650 mg PO Q6H PRN #30 tab PRN Reason: Mild Pain (Scale 1 To 3) Vit No.179/Iron/Folic [ Tablet] 1 each PO Labetalol HCl 200 mg PO BID #60 tab Discharge Medication List Labetalol [Trandate] 100 mg PO BID 01/06/24 [History] Vit No.179/Iron/Folic [ Tablet] 1 each PO 01/06/24 [History] Acetaminophen Tab [Tylenol] 650 mg PO Q6H PRN #30 tab 01/09/24 [Rx] Ibuprofen [Motrin] 600 mg PO Q6HR PRN #30 tab 01/09/24 [Rx] Labetalol HCl 200 mg PO BID #60 tab 05/10/24 [Rx] oxyCODONE HCL [Roxicodone] 5 mg PO Q6HR PRN 3 Days #12 tab 01/09/24 [Rx] Labetalol HCl 300 mg PO BID #60 tab 01/14/24 [Rx] NIFEdipine XL [Procardia Xl] 30 mg PO DAILY #30 tab 01/14/24 [Rx] Follow up Appointment(s)/Referral(s): None,Stated [Primary Care Provider] - 1-2 days Anand Neil MD [STAFF PHYSICIAN] - 1 Week Patient Instructions/Handouts: Preeclampsia and Eclampsia After Delivery (GEN) Discharge Disposition: HOME SELF-CARE
[2024-01-14 09:54] VITALS: BP 151/82; PULSE 84; TEMP 97.8
== END 2024-01-14 09:50 | disposition home or self-care (01) | DRG 776 ==
LOC: EC 00:01 → 4FBP 01:58
PROVIDERS: ADMIT Obstetrics & Gynecology; ATTEND Obstetrics & Gynecology
DX: O14.95 Unspecified pre-eclampsia, complicating the puerperium (principal)
CPT/HCPCS: 36415; 71046; 80053; 81001; 83615; 83735; 84550; 85025; 93005; 96365; 99291

== ENCOUNTER 2024-11-03 20:17 | Outpatient (CLI) | payer BC ==
--- NOTE | 2024-11-03 21:38 | US ---
EXAMINATION TYPE: US gallbladder DATE OF EXAM: 11/03/2024 COMPARISON: CT(10/23/2019) CLINICAL INDICATION: Female, 34 years old with history of Right upper quadrant pain; pt is 22 weeks p reg, experiencing RUQ pain radiating to back TECHNIQUE: Grayscale and color Doppler imaging of the right upper quadrant. FINDINGS: EXAM MEASUREMENTS: Liver Length: 17.6 cm Gallbladder Wall: 0.2 cm CBD: 0.4 cm, color Doppler imaging was utilized to isolate the common bile duct for measurement. Right Kidney: 11.3x5.0x6.2 cm SUPERVISOR CELL OPERATION NOTES: slightly limited due to pt body habitus & overlying bowel Pancreas: Obscured by bowel gas Liver: Heterogeneous, course echotexture, Enlarged Gallbladder: Multiple echogenic foci seen, Largest: 0.7cm Evidence for sonographic Wilson's sign: No CBD: wnl Right Kidney: No hydronephrosis or masses seen IMPRESSION: 1. No evidence for acute process. 2. Cholelithiasis. 3. Heterogenous liver echotexture correlate with serum markers [facility] Ame[facility], , 11/03/2024 9:35 PM
[2024-11-03 21:41] LABS: ALT 15 U/L (4-34); AST 13 U/L (14-36); Amylase 51 U/L (30-110); Lipase 116 U/L (23-300)
[2024-11-03 22:09] VITALS: BP 148/82; PULSE 75; RESP 16; TEMP 97.7
== END 2024-11-03 21:54 | disposition home or self-care (01) ==
LOC: FBPOP 20:17
PROVIDERS: ATTEND Obstetrics & Gynecology Obstetrics
DX: O99.612 Diseases of the digestive system complicating pregnancy, second trimester (principal); K80.20 Calculus of gallbladder without cholecystitis without obstruction; Z3A.22 22 weeks gestation of pregnancy
CPT/HCPCS: 36415; 76705; 82150; 83690; 84450; 84460; 99213

== ENCOUNTER 2024-12-25 02:44 | Outpatient (CLI) | payer BC ==
[2024-12-25] MEDS: BUTORPHANOL 1 MG/ML 1 ML VIAL IV ONE (03:25)
[2024-12-25] MEDS: LACTATED RINGERS 1,000 ML IV ONE (03:25)
[2024-12-25 03:30] LABS: Basophils # (A) 0.05 10*3/uL (0.00-0.10); Basophils % (A) 0.3 %; Eosinophils # (A) 0.06 10*3/uL (0.04-0.35); Eosinophils % (A) 0.4 %; HCT 34.9 % (37.2-46.3); HGB 11.9 g/dL (12.0-15.0); Lymphocytes # (A) 2.02 10*3/uL (0.90-5.00); Lymphocytes % (A) 12.4 %; MCH 29.5 pg (27.0-32.0); MCHC 34.1 g/dL (32.0-37.0); MCV 86.4 fL (80.0-97.0); Mean Platelet Volume 10.2 fL (9.5-12.2); Monocytes % (A) 7.3 %; Neutrophils # (A) 12.91 10*3/uL (1.80-7.70); Platelet Count 299 10*3/uL (140-440); RBC 4.04 10*6/uL (4.10-5.20); RDW 12.6 % (11.5-14.5); WBC 16.34 10*3/uL (4.50-10.00)
[2024-12-25 03:49] LABS: ALT 17 U/L (4-34); AST 20 U/L (14-36); Amylase 55 U/L (30-110); Lipase 150 U/L (23-300)
[2024-12-25 04:49] VITALS: BP 158/79; PULSE 80; RESP 20; TEMP 96.9
--- NOTE | 2024-12-25 11:49 | P.MSEPDOC ---
Presenting Problems - Arrival Data Date of Arrival on Unit: 12/25/24 Time of Arrival on Unit: 02:44 Mode of Transport: Ambulatory - Complaint OB-Reason for Admission/Chief Complaint: Pain Comment: Pt reports to triage with complaints of sudden, constant, and intese RUQ pain that began in her back and is now shooting down her abdomen. Pt states pain started around midnight and is increasing. Pt has also vomitted due to the pain. Pt is breathing heavily and grimacing. Medical History - Information : 2 Para: 1 Term: 1 : 0 Abortions: Spontaneous or Elective: 0 Number of Living Children: 1 - Gestational Age Gestational Age by JEAN CLAUDE (wks/days): 30 Weeks and 1 Days - History Comment: Hx. of Pre-e last Review of Systems - Review of Systems Constitutional: No problems Breast: No problems ENT: No problems Cardiovascular: No problems Respiratory: No problems Gastrointestinal: No problems Genitourinary: No problems Musculoskeletal: No problems Neurological: No problems Skin: No problems Vital Signs - Temperature Temperature: 96.9 F Temperature Source: Temporal Artery Scan - Pulse Pulse Oximetery Pulse Rate: 80 Pulse Assessment Method: Automatic Cuff - Respirations Respiratory Rate: 20 Oxygen Delivery Method: Room Air O2 Sat by Pulse Oximetry: 99 - Blood Pressure Right Arm Blood Pressure: 158/79 Blood Pressure Mean: 105 Blood Pressure Source: Automatic Cuff Medical Screen Scoring - Assessment - Baby A Baseline FHR: 135 Heart Rate - NICHD Category: Category I (Normal) NST: Reactive Physician Notification - Physician Notified Physician Notified Date: 12/25/24 Physician Notified Time: 03:54 Physician: Anand Neil Order Received: Yes (cbc, AST,ALT, Amylase, and lipase, stadol 1mg for pain and LR fluids) - Notification Comment Comment: pt. was last seen in october for same symtopms ultrasound showed- cholelithiasis, orders to draw cbc, AST, ALT, Amylase, lipase, stadol 1mg for pain, and LR fluids, reviewed labs, pain 6/10 after stadol pt. is much more comfortable, orders to discharge pt. home at this time on low fat diet, and increase water intake. Maternal Triage Index - Maternal Triage Index Presenting for scheduled procedure w/no complaint: No - Stat/Priority 1 Stat Priority 1: No - Urgent/Priority 2 Urgent Priority 2: Yes Provider Notified: Anand Neil Provider Notified Time: 03:08 Criteria Met for Priority 2: 30 weeks a 1 day, RUQ pain 06/10 Disposition - Disposition OB Disposition: Discharge to home Discharge Date: 12/25/24 Discharge Time: 04:35 I agree with the RN Medical Screening Exam: Yes Physician's MSE Comment: I have neither seen nor examined the patient. Case reviewed; plan agreed upon as documented in EMR&OBIX.: Yes Diagnosis: RELATED CONDITIONS, UNSPECIFIED, THIRD TRIMESTER
== END 2024-12-25 04:35 | disposition home or self-care (01) ==
LOC: FBPOP 02:44
PROVIDERS: ATTEND Obstetrics & Gynecology
DX: O26.893 Other specified pregnancy related conditions, third trimester (principal); O21.9 Vomiting of pregnancy, unspecified; R10.11 Right upper quadrant pain; Z3A.30 30 weeks gestation of pregnancy
CPT/HCPCS: 59025; 99214; 96360; 96361; 96375; 36415; 82150; 83690; 84450; 84460; 85025; J0595

== ENCOUNTER 2025-02-15 05:12 | Outpatient (CLI) | payer BC ==
[2025-02-15] MEDS: NALBUPHINE 10 MG/ML (10 ML MDV) IV PRN (06:18)
[2025-02-15] MEDS: FAMOTIDINE 20 MG/2 ML VIAL IV STA (06:19)
[2025-02-15] MEDS: LACTATED RINGERS 1,000 ML IV SCH (06:20)
[2025-02-15] MEDS: ONDANSETRON 4 MG/2 ML VIAL IVP STA (06:23)
[2025-02-15 07:03] LABS: ALT 17 U/L (4-34); AST 18 U/L (14-36); African American GFR (CKD) >90 (>60 ml/min/1.73 sqM); Albumin 3.2 g/dL (3.5-5.0); Alkaline Phosphatase 161 U/L (38-126); Anion Gap 8 mmol/L; Blood Urea Nitrogen 10 mg/dL (7-17); Carbon Dioxide 18 mmol/L (22-30); Chloride 109 mmol/L (98-107); Glucose 109 mg/dL (74-99); Non-African American GFR(CKD) >90 (>60 ml/min/1.73 sqM); Potassium 4.2 mmol/L (3.5-5.1); Sodium 135 mmol/L (137-145); Total Bilirubin 0.3 mg/dL (0.2-1.3)
[2025-02-15 07:26] LABS: Basophils # (A) 0.03 10*3/uL (0.00-0.10); Basophils % (A) 0.2 %; Eosinophils # (A) 0.03 10*3/uL (0.04-0.35); Eosinophils % (A) 0.2 %; HCT 33.7 % (37.2-46.3); HGB 10.9 g/dL (12.0-15.0); Lymphocytes # (A) 1.79 10*3/uL (0.90-5.00); Lymphocytes % (A) 14.1 %; MCH 27.3 pg (27.0-32.0); MCHC 32.3 g/dL (32.0-37.0); MCV 84.3 fL (80.0-97.0); Mean Platelet Volume 10.8 fL (9.5-12.2); Monocytes # (A) 0.91 10*3/uL (0.20-1.00); Monocytes % (A) 7.2 %; Neutrophils # (A) 9.85 10*3/uL (1.80-7.70); Neutrophils % (A) 77.8 %; Platelet Count 283 10*3/uL (140-440); RDW 13.2 % (11.5-14.5); WBC 12.67 10*3/uL (4.50-10.00)
--- NOTE | 2025-02-15 09:57 | US ---
EXAMINATION TYPE: US abdomen limited DATE OF EXAM: 02/15/2025 COMPARISON: NONE CLINICAL INDICATION: Female, 35 years old with history of abdominal pain, gallbladder hx; Pain onset one am with nausea and vomiting; 37.5 weeks TECHNIQUE: Grayscale and color Doppler imaging of the right upper quadrant was performed. FINDINGS: EXAM MEASUREMENTS: Liver Length: 16.8 cm Gallbladder Wall: 0.6 cm CBD: 0.4 cm Right Kidney: 13.7 x 5.0 x 4.4 cm CLINICAL SOCIOLOGIST NOTES: Pancreas: Obscured by bowel gas Liver: Simple cyst within lower right lobe measures 1.6 x 1.3 cm. Gallbladder: Multiple echogenic foci with posterior shadowing, ? Debris, and thickened wall with adj acent trace fluid. Clinical correlation for acute cholecystitis. Evidence for sonographic Wilson's sign: No CBD: dilated Right Kidney: wnl The was not evaluated during this exam. IMPRESSION: 1. Fluid adjacent to the thickened gallbladder wall with multiple gallstones present. Correlate for a cute cholecystitis. [facility], , 02/15/2025 9:55 AM
[2025-02-15 11:23] VITALS: BP 146/70; PULSE 57; RESP 18; TEMP 97.5
--- NOTE | 2025-03-04 11:31 | P.MSEPDOC ---
Presenting Problems - Arrival Data Date of Arrival on Unit: 02/15/25 Time of Arrival on Unit: 05:12 Mode of Transport: Wheelchair - Complaint OB-Reason for Admission/Chief Complaint: Pain Comment: Right sided abdominal pain, hx of gallbladder complications with current Medical History - Information : 2 Para: 1 Term: 1 : 0 Abortions: Spontaneous or Elective: 0 Number of Living Children: 1 - Gestational Age Gestational Age by JEAN CLAUDE (wks/days): 37 Weeks and 4 Days - History Complications: Prior Review of Systems - Review of Systems Constitutional: No problems Breast: No problems ENT: No problems Cardiovascular: No problems Respiratory: No problems Gastrointestinal: Pain Genitourinary: No problems Musculoskeletal: No problems Neurological: No problems Skin: No problems Vital Signs - Temperature Temperature: 97.5 F Temperature Source: Temporal Artery Scan - Pulse Pulse Oximetery Pulse Rate: 57 Pulse Assessment Method: Pulse Oximetry - Respirations Respiratory Rate: 18 Oxygen Delivery Method: Room Air O2 Sat by Pulse Oximetry: 100 - Blood Pressure Right Arm Blood Pressure: 146/70 Blood Pressure Mean: 95 Blood Pressure Source: Automatic Cuff Medical Screen Scoring - Assessment - Baby A Baseline FHR: 130 Heart Rate - NICHD Category: Category I (Normal) NST: Reactive Physician Notification - Physician Notified Physician Notified Date: 02/15/25 Physician Notified Time: 05:40 Physician: Anand Neil Order Received: Yes - Notification Comment Comment: [id number]- Dr. Neil on unit report given on patients complaints. Orders received for IV fluids, Zofran 4mg IVP, Famotadine 20mg IV, Nubain 2.5mg IV, CBC and CMP. Blood pressures reviewed and patient has history of PIH. 07- Dr. Neil on unit. Report given on pt's CMP results, CBC redraw, and that pt is feeling better overall. Orders to give pt a 2nd liter of LR then D/C home if pt is still feeling better. 0900- Dr. Neil called, report given that pt's pain is 7/10 now. Orders to get an U/S of pt's liver and gallbladder and give 5mg oxycodone PO once. 1029- Dr. Neil called, report given that pt's pain is now 3/10 following oxycodone and U/S report shows "fluid adjacent to the thickened gallbladder wall with multiple gallstones". Dr. Neil will send in a script for tylenol 3. Orders to discharge pt home with instructions to avoid fatty/spicy foods, take tylenol 3 as needed, and return to triage if pain gets significantly worse over the next couple days. Maternal Triage Index - Maternal Triage Index Presenting for scheduled procedure w/no complaint: No - Stat/Priority 1 Stat Priority 1: No - Urgent/Priority 2 Urgent Priority 2: Yes Provider Notified: Anand Neil Provider Notified Time: 05:40 Criteria Met for Priority 2: 37 4/7wks, elevated initial BPs, pain 10/10, hx of gallbladder issues Disposition - Disposition OB Disposition: Discharge to home Discharge Date: 02/15/25 Discharge Time: 10:35 I agree with the RN Medical Screening Exam: Yes Physician's MSE Comment: I have neither seen nor examined the patient. Case reviewed; plan agreed upon as documented in EMR&OBIX.: Yes Diagnosis: RELATED CONDITIONS, UNSPECIFIED, THIRD TRIMESTER
== END 2025-02-15 10:35 | disposition home or self-care (01) ==
LOC: FBPOP 05:12
PROVIDERS: ATTEND Obstetrics & Gynecology
DX: O26.893 Other specified pregnancy related conditions, third trimester (principal); O26.613 Liver and biliary tract disorders in pregnancy, third trimester; R10.9 Unspecified abdominal pain; Z3A.37 37 weeks gestation of pregnancy
CPT/HCPCS: 59025; 99214; 96361; 96374; 96375; 80053; 85025; 76705; J2300; J2405; J1308

== ENCOUNTER 2025-02-25 06:14 | Inpatient (IN) | payer BC ==
[2025-02-25] MEDS ORDERED: miSOPROStoL 200 MCG TAB PO PRN (06:41)
[2025-02-25] MEDS ORDERED: METHYLERGONOVINE 0.2 MG/ML 1 ML AMP IM PRN (06:41)
[2025-02-25] MEDS ORDERED: TRANEXAMIC 1,000 MG/100ML-NACL 1,000 MG in EMPTY BAG 1 BAG IV PRN (06:41)
[2025-02-25] MEDS ORDERED: OXYTOCIN 10 UNIT/ML 1 ML VIAL IM PRN (06:41)
[2025-02-25] MEDS ORDERED: CARBOPROST TROMETHAMINE 250 MCG/ML 1 ML AMP IM PRN (06:41)
[2025-02-25 07:17] LABS: Basophils # (A) 0.04 10*3/uL (0.00-0.10); Basophils % (A) 0.4 %; Eosinophils # (A) 0.08 10*3/uL (0.04-0.35); Eosinophils % (A) 0.7 %; HCT 33.9 % (37.2-46.3); Lymphocytes # (A) 2.31 10*3/uL (0.90-5.00); Lymphocytes % (A) 21.1 %; MCH 26.9 pg (27.0-32.0); MCHC 32.4 g/dL (32.0-37.0); MCV 82.9 fL (80.0-97.0); Monocytes # (A) 1.03 10*3/uL (0.20-1.00); Monocytes % (A) 9.4 %; Neutrophils # (A) 7.46 10*3/uL (1.80-7.70); Platelet Count 311 10*3/uL (140-440); RBC 4.09 10*6/uL (4.10-5.20); RDW 13.5 % (11.5-14.5); WBC 10.96 10*3/uL (4.50-10.00)
[2025-02-25] MEDS: CITRIC ACID-SODIUM CITRATE 15 ML CUP PO ONE (07:38)
[2025-02-25] MEDS ORDERED: NALBUPHINE (ANES) 10 MG/ML - 1 ML AMP ONE (08:16)
[2025-02-25] MEDS ORDERED: ONDANSETRON 4 MG/2 ML VIAL ONE (08:16)
[2025-02-25] MEDS ORDERED: MORPHINE SULFATE (PF) 0.3 MG/0.3 ML SYR ONE (08:16)
[2025-02-25] MEDS ORDERED: KETOROLAC 15 MG/ML 1 ML VIAL ONE (08:16)
[2025-02-25] MEDS ORDERED: OXYTOCIN 30 UNITS/500 ML NS BAG IV ONE (08:16)
--- NOTE | 2025-02-25 08:16 | P.HPOB ---
History of Present Illness H&P Date: 02/25/25 Chief Complaint: 39-0/7 weeks, previous section, requesting repeat with sterilizati The patient is a 35-year-old 2 para 1-0-0-1 who presents at 39-0/7 weeks as established by last menstrual period and confirmed by 13-week ultrasound. She is admitted for repeat low-transverse section having had a previous section. She has requested intraoperative bilateral salpingectomy. Her has been uncomplicated. She does fall into the category of advanced maternal age and had negative fraction testing early in the . Group B strep status is negative. On labor and delivery, all signs are reassuring with a category 1 heart rate tracing. Obstetrical history: 2 para 1-0-0-1 with 1 term section co mplicated by preeclampsia. Current statistics are listed in history of present illness. EDC of 03/04/2025 was established by last menstrual period and confirmed by 13-week ultrasound. Laboratory workup demonstrates a blood type of A+ with a negative antibody screen. Rubella status is immune. The remainder of the laboratory workup was within normal limits. Early Glucola as well as second trimester Glucola were within normal limits. Group B strep status is negative. Gynecologic history: Unremarkable with no history of any infections to include STDs. Review of Systems Review of systems is confined to history of present illness. Past Medical History Past Medical History: No Reported History History of Any Multi-Drug Resistant Organisms: None Reported Past Surgical History: Section Additional Past Surgical History / Comment(s): ACL repair. Past Anesthesia/Blood Transfusion Reactions: No Reported Reaction Past Psychological History: No Psychological Hx Reported Smoking Status: Never smoker Past Alcohol Use History: None Reported Past Drug Use History: None Reported - Past Family History Mother Family Medical History: No Reported History Medications and Allergies Home Medications Medication Instructions Recorded Confirmed Type Vit No.179/Iron/Folic 1 each PO DAILY 01/06/24 02/25/25 History [ Tablet] Aspirin [Adult Low Dose Aspirin EC] 81 mg PO DAILY 11/03/24 02/25/25 History RX: Omeprazole 20 mg PO DAILY 12/25/24 02/25/25 History Allergies Allergy/AdvReac Type Severity Reaction Status Date / Time No Known Allergies Allergy Verified 02/25/25 06:40 Exam Vital Signs Temp Pulse Resp BP Pulse Ox 02/25/25 06:39 97.0 F L 81 16 149/95 98 Intake and Output 02/24/25 02/25/25 02/25/25 22:59 06:59 14:59 Other: Weight 115.666 kg In general, this is a well-developed, mild to moderately obese white female in no acute distress. Her heart has a regular rhythm and rate without murmur. Her lungs are clear to auscultation bilaterally in all gay. Her abdomen is gravid, nondistended, has normal active bowel sounds, soft, nontender, and without any palpable masses aside from uterine fundus. Her extremities are without any cyanosis, clubbing, or significant edema and are nontender to palpation bilaterally. Digital cervical examination is deferred. Results Result Diagrams: 02/25/25 06:50 Abnormal Lab Results - Last 24 Hours (Table) 02/25/25 Range/Units 06:50 WBC 10.96 H (4.50-10.00) 10*3/uL RBC 4.09 L (4.10-5.20) 10*6/uL Hgb 11.0 L (12.0-15.0) g/dL Hct 33.9 L (37.2-46.3) % MCH 26.9 L (27.0-32.0) pg Monocytes # 1.03 H (0.20-1.00) 10*3/uL Assessment and Plan (1) Family planning Current Visit: Yes Status: Acute Code(s): Z30.09 - ENCOUNTER FOR OTH GENERAL CNSL AND ADVICE ON CONTRACEPTION SNOMED Code(s): 390271649 (2) Previous section Current Visit: Yes Status: Acute Code(s): Z98.891 - HISTORY OF UTERINE SCAR FROM PREVIOUS SURGERY SNOMED Code(s): 806498237 (3) Term Current Visit: Yes Status: Acute Code(s): Z34.90 - ENCNTR FOR SUPRVSN OF NORMAL , UNSP, UNSP TRIMESTER SNOMED Code(s): 51965222 Plan: The patient is admitted for repeat low-transverse section with intraoperative bilateral salpingectomy. The risks and complications of the procedures have been thoroughly discussed including the permanent nature of sterilization. She has understood all of this and agreed to proceed.
[2025-02-25] MEDS ORDERED: METOCLOPRAMIDE 5 MG/ML 2 ML VIAL IVP PRN (09:13)
[2025-02-25] MEDS ORDERED: NALOXONE 0.4 MG/ML 1 ML VIAL IV PRN (09:13)
[2025-02-25] MEDS ORDERED: ZOLPIDEM 5 MG TAB PO PRN (09:13)
[2025-02-25] MEDS ORDERED: SIMETHICONE 80 MG CHEWABLE PO PRN (09:13)
[2025-02-25] MEDS ORDERED: diphenhydrAMINE 50 MG/ML 1 ML VIAL IVP PRN (09:13)
[2025-02-25] MEDS ORDERED: diphenhydrAMINE 25 MG CAP PO PRN (09:13)
[2025-02-25] MEDS ORDERED: ONDANSETRON 4 MG/2 ML VIAL IVP PRN (09:13)
[2025-02-25] MEDS ORDERED: LANOLIN CREAM 1 GM TUBE TOPICAL PRN (09:13)
[2025-02-25] MEDS ORDERED: diphenhydrAMINE 50 MG CAP PO PRN (09:13)
--- NOTE | 2025-02-25 09:13 | P.OP ---
Date of Procedure: 02/25/25 Preoperative Diagnosis: #1. 39-0/7 weeks, previous section requesting repeat #2. Undesired fertility Postoperative Diagnosis: Same Procedure(s) Performed: #1. Repeat low-transverse section #2. Intraoperative bilateral salpingectomy Anesthesia: spinal Surgeon: Anand Neil Fast [employer] Cook #1: Autumn Catherine Estimated Blood Loss (ml): 320 IV fluids (ml): 800 Urine output (ml): 300 Pathology: none sent Condition: stable Disposition: floor Operative Findings: The patient was taken to the operating room where she was delivered by repeat low-transverse section of a viable 8 pound 0 ounce baby girl with Apgars of 8 at 1 minute 9 at 5 minutes in the occiput anterior position. The placenta was delivered manually, intact, and grossly normal with a grossly normal three-vessel cord. The uterus, tubes, and ovaries were entirely normal to inspection. The bilateral fallopian tubes were removed using a LigaSure device from the fimbriated end to the cornu on each side and sent as a single specimen to pathology. There was no significant scarring at the level of the fascia or rectus muscles. Description of Procedure: The patient was prepped and draped in usual fashion after spinal anesthesia was administered by the anesthesiologist. A Pfannenstiel incision was made through her pre-existing scar and extended into the abdominal cavity without difficulty. The bladder peritoneum was slightly higher than usual and was therefore elevated, incised, and reflected distally. A 2 cm incision was made in the transverse plane of the lower uterine segment to enter the uterus at which time clear fluid was noted. The incision was extended in both directions using the bandage scissors. The head was delivered up and through the incision where the nose and mouth were thoroughly suction. The remainder of the was delivered onto the field where the cord was doubly clamped, cut, and the passed resuscitative measures with weight and Apgars as noted above. The placenta was delivered manually and intact as noted above. The uterus was exteriorized and the anterior cavity the uterus swept of any remaining placental or membranous fragments. The margins of the uterine incision were grasped with Bell clamps and the incision closed in a single running locking stitch of 0 chromic catgut from margin to margin. Hemostasis appeared to be excellent. After reaffirming with the patient that her desire for permanent sterilization, the right fallopian tube was grasped at the fimbriated end with a Bell clamp, elevated, and removed from its underlying tissues with a LigaSure device through to the cornu at which time was transected and sent as a pathological specimen. A similar operation was carried out on the left side with both tubes included in a single specimen cup. Hemostasis again appeared to be excellent. The posterior cul-de-sac was suctioned using a guard followed by laparotomy sponge. The uterus was replaced within the abdominal cavity and the gutters swept of any remaining blood, fluid, or clot. The incision was reexamined and any small points of bleeding made hemostatic with the Bovie. After achieving hemostasis, the parietal peritoneum was loosely reapproximated and the layer of muscles examined and found to be hemostatic. The fascia was closed with a single running stitch of 0 Vicryl proceeding from margin to margin. The subcutaneous tissues were made hemostatic with the Bovie then reapproximated with a running stitch of 3-0 plain catgut. The skin was reapproximated with a running subcuticular stitch of 4-0 Vicryl followed by half-inch Steri-Strips placed with Mastisol. Quantitative blood loss for the case was 320 mL. There were no complications. All sponge, instrument, and needle counts were correct. The patient tolerated the procedure well and proceeded to the recovery room in stable condition. Both mother and are resting comfortably in recovery. A physician surgical supplies sterilizer was utilized for the entire procedure due to the need for tissue retraction, dissection of vital structures, prevention and management of blood loss, and reduction in overall operative and anesthetic time as is the standard of care.
[2025-02-25] MEDS ORDERED: OXYTOCIN 30 UNITS/500 ML NS 30 UNIT in SALINE 1 500ML.BAG IV SCH (09:15)
[2025-02-25] MEDS: ceFAZolin 3 GM in SODIUM CHLORIDE 0.9% 100 ML IVPB ONE (09:27)
[2025-02-25] MEDS: LACTATED RINGERS 1,000 ML IV SCH (09:27)
[2025-02-25] MEDS: diphenhydrAMINE 50 MG/ML 1 ML VIAL IVP PRN (11:20)
[2025-02-25] MEDS: NALBUPHINE 10 MG/ML (10 ML MDV) IV STA (14:28)
[2025-02-25] MEDS: ACETAMINOPHEN TAB 500 MG TAB PO SCH (16:03)
[2025-02-25] MEDS: SENNOSIDES-DOCUSATE SODIUM 1 EACH TAB PO SCH (19:42)
[2025-02-25] MEDS: KETOROLAC 15 MG/ML 1 ML VIAL IVP PRN (19:42)
[2025-02-26 07:01] LABS: Basophils # (A) 0.04 10*3/uL (0.00-0.10); Basophils % (A) 0.4 %; Eosinophils # (A) 0.15 10*3/uL (0.04-0.35); Eosinophils % (A) 1.4 %; HCT 31.8 % (37.2-46.3); Lymphocytes # (A) 2.56 10*3/uL (0.90-5.00); Lymphocytes % (A) 23.5 %; MCH 26.7 pg (27.0-32.0); MCHC 31.4 g/dL (32.0-37.0); Mean Platelet Volume 10.8 fL (9.5-12.2); Monocytes % (A) 10.1 %; Neutrophils # (A) 6.98 10*3/uL (1.80-7.70); Platelet Count 282 10*3/uL (140-440); RBC 3.74 10*6/uL (4.10-5.20); RDW 13.6 % (11.5-14.5)
--- NOTE | 2025-02-26 09:19 | P.PNOBGPC ---
Subjective - Subjective Principal diagnosis: Postop day 1, repeat section Interval history: Patient is doing well postoperatively. She is ambulating and voiding without difficulty. She is tolerating a regular diet without nausea or vomiting. She states her lochia is minimal Patient reports: Reports appetite normal, Reports voiding normally, Reports pain well controlled, Reports ambulating normally : doing well Objective - Vital Signs Latest vital signs: Vital Signs Temp Pulse Resp BP Pulse Ox 02/26/25 08:30 97.9 F 70 16 135/86 99 02/26/25 00:00 97.6 F 94 18 131/78 96 02/25/25 19:50 97.6 F 94 16 125/79 02/25/25 16:00 97 F L 64 16 131/80 98 02/25/25 12:00 98 F 58 L 16 137/78 97 02/25/25 11:10 58 L 16 123/69 97 02/25/25 10:55 51 L 16 121/70 97 02/25/25 10:40 51 L 16 124/71 97 02/25/25 10:25 56 L 16 122/70 97 02/25/25 10:10 50 L 16 122/71 98 02/25/25 09:55 54 L 16 119/62 98 02/25/25 09:39 59 L 16 124/62 99 02/25/25 09:25 58 L 16 105/54 Intake and Output 02/25/25 02/26/25 02/26/25 22:59 06:59 14:59 Output Total 1200 Balance -1200 Output: Urine 1200 Other: # Voids 1 - Exam Extremities: Present: normal, edema Abdomen: Present: normal appearance, soft Incision: Present: normal, dry, intact Uterus: Present: normal, firm - Labs Labs: Abnormal Lab Results - Last 24 Hours (Table) 02/26/25 Range/Units 06:09 WBC 10.90 H (4.50-10.00) 10*3/uL RBC 3.74 L (4.10-5.20) 10*6/uL Hgb 10.0 L (12.0-15.0) g/dL Hct 31.8 L (37.2-46.3) % MCH 26.7 L (27.0-32.0) pg MCHC 31.4 L (32.0-37.0) g/dL Immature Gran # 0.07 H (0.00-0.04) 10*3/uL Monocytes # 1.10 H (0.20-1.00) 10*3/uL Assessment and Plan (1) Advanced maternal age (AMA) in Current Visit: Yes Status: Acute Code(s): UTW0696 - SNOMED Code(s): 592962915 (2) Family planning Current Visit: Yes Status: Acute Code(s): Z30.09 - ENCOUNTER FOR OT GENERAL CNSL AND ADVICE ON CONTRACEPTION SNOMED Code(s): 694881893 (3) Previous section Current Visit: Yes Status: Acute Code(s): Z98.891 - HISTORY OF UTERINE SCAR FROM PREVIOUS SURGERY SNOMED Code(s): 994723670 (4) Term Current Visit: Yes Status: Acute Code(s): Z34.90 - ENCNTR FOR SUPRVSN OF NORMAL , UNSP, UNSP TRIMESTER SNOMED Code(s): 56181838 Plan: Patient is doing well postoperatively., Plan to continue routine postoperative care, anticipate discharge home tomorrow
--- NOTE | 2025-02-26 11:22 | P.PN ---
Progress Note - Text Progress Note Date: 02/26/25 Postoperative day 1 status post section under spinal anesthesia, and intrathecal morphine given for postoperative analgesia, patient doing well, there is no anesthesia related complications, Patient had no headache, vital signs stable , Assessment and plan= postop day 1 status post , doing well there is no anesthesia related complication.
[2025-02-26] MEDS: IBUPROFEN 800 MG TAB PO SCH (12:06)
[2025-02-26 17:01] LABS: Basophils # (A) 0.05 10*3/uL (0.00-0.10); Basophils % (A) 0.5 %; Eosinophils # (A) 0.14 10*3/uL (0.04-0.35); Eosinophils % (A) 1.3 %; HCT 30.9 % (37.2-46.3); HGB 9.9 g/dL (12.0-15.0); Lymphocytes # (A) 1.91 10*3/uL (0.90-5.00); MCH 27.1 pg (27.0-32.0); MCV 84.7 fL (80.0-97.0); Mean Platelet Volume 10.7 fL (9.5-12.2); Monocytes % (A) 9.4 %; Neutrophils # (A) 7.47 10*3/uL (1.80-7.70); Neutrophils % (A) 70.2 %; Platelet Count 292 10*3/uL (140-440); RBC 3.65 10*6/uL (4.10-5.20); RDW 13.5 % (11.5-14.5); WBC 10.63 10*3/uL (4.50-10.00)
[2025-02-26 17:11] LABS: ALT 22 U/L (4-34); AST 20 U/L (14-36); African American GFR (CKD) >90 (>60 ml/min/1.73 sqM); Blood Urea Nitrogen 8 mg/dL (7-17); LDH 146 U/L (120-246); Non-African American GFR(CKD) >90 (>60 ml/min/1.73 sqM); Uric Acid 5.6 mg/dL (3.7-7.4)
[2025-02-26] MEDS: LABETALOL 100 MG TAB PO ONE (20:39)
[2025-02-26] MEDS: LABETALOL 200 MG TAB PO STA (22:44)
[2025-02-27] MEDS: LABETALOL 200 MG TAB PO SCH (10:07)
--- NOTE | 2025-02-27 11:07 | P.PNOBGPC ---
Subjective - Subjective Principal diagnosis: Postop day 2, repeat section with bilateral salpingectomy Interval history: Patient overall is doing well postoperatively. Some elevated blood pressures were appreciated 150s over 90s. Oral labetalol was begun yesterday afternoon. Patient denies signs or symptoms of preeclampsia. She is ambulating and voiding without difficulty. She denies concerns this morning. She is anxious for discharge home later today if blood pressures remain normal Patient reports: Reports appetite normal, Reports voiding normally, Reports pain well controlled, Reports ambulating normally [place]: doing well Objective - Vital Signs Latest vital signs: Vital Signs Temp Pulse Resp BP Pulse Ox 02/27/25 08:35 97.8 F 78 18 153/80 98 02/27/25 04:26 66 16 114/70 02/27/25 00:00 98.1 F 73 16 142/76 02/26/25 22:32 84 16 167/92 02/26/25 20:20 98.2 F 71 16 157/89 99 02/26/25 16:00 97.6 F 67 16 143/88 98 Intake and Output 02/26/25 02/27/25 02/27/25 22:59 06:59 14:59 Other: # Voids 1 - Exam Extremities: Present: normal, edema Abdomen: Present: normal appearance, soft Incision: Present: normal, dry, intact Uterus: Present: normal, firm - Labs Labs: Abnormal Lab Results - Last 24 Hours (Table) 02/26/25 Range/Units 16:50 WBC 10.63 H (4.50-10.00) 10*3/uL RBC 3.65 L (4.10-5.20) 10*6/uL Hgb 9.9 L (12.0-15.0) g/dL Hct 30.9 L (37.2-46.3) % Immature Gran # 0.06 H (0.00-0.04) 10*3/uL Assessment and Plan (1) Advanced maternal age (AMA) in Current Visit: Yes Status: Acute Code(s): EPY6133 - SNOMED Code(s): 605179131 (2) Family planning Current Visit: Yes Status: Acute Code(s): Z30.09 - ENCOUNTER FOR OTH GENERAL CNSL AND ADVICE ON CONTRACEPTION SNOMED Code(s): 083881727 (3) Previous section Current Visit: Yes Status: Acute Code(s): Z98.891 - HISTORY OF UTERINE SCAR FROM PREVIOUS SURGERY SNOMED Code(s): 169100492 (4) Term Current Visit: Yes Status: Acute Code(s): Z34.90 - ENCNTR FOR SUPRVSN OF NORMAL , UNSP, UNSP TRIMESTER SNOMED Code(s): 16527989 Plan: Patient is doing well . Some elevated blood pressures are appreciated. Patient states she did have preeclampsia with her last delivery and was readmitted, discussed close observation of blood pressures prior to discharge. Will observe through the day if blood pressures remain normal with oral labetalol. Consider discharge around 1700 if blood pressures remain in the normal range Questions are answered and patient states understanding. Discussed if discharged will need 1 week close follow-up for blood pressure check
[2025-02-27 11:56] VITALS: TEMP 98.1
[2025-02-27 16:50] VITALS: BP 148/84; PULSE 80; RESP 16
== END 2025-02-27 18:53 | disposition home or self-care (01) | DRG 785 ==
LOC: 4FBP 06:14
PROVIDERS: ADMIT Obstetrics & Gynecology; ATTEND Obstetrics & Gynecology
PROC: 0UB70ZZ Excision of Bilateral Fallopian Tubes, Open Approach (ICD-10-PCS; 2025-02-25)
PROC: 10D00Z1 Extraction of Products of Conception, Low, Open Approach (ICD-10-PCS; principal; 2025-02-25 08:32)
DX: O34.211 Maternal care for low transverse scar from previous cesarean delivery (principal); Z30.2 Encounter for sterilization; Z37.0 Single live birth; Z3A.39 39 weeks gestation of pregnancy; Z79.82 Long term (current) use of aspirin
CPT/HCPCS: 82565; 83615; 84450; 84460; 84520; 84550; 85025; 86850; 86900; 86901